=== PATIENT | male | born 1960 | race Caucasian/White ===

== ENCOUNTER 2018-09-07 15:56 | Outpatient (REF) | payer BC, SELFPAY ==
[2018-09-07 20:42] LABS: Anion Gap 9.4 mmol/L (3-11); BUN 19 mg/dL (7-18); CO2 27.6 mmol/L (21.0-32.0); CREATININE 1.07 mg/dL (0.70-1.30); Calcium 9.8 mg/dL (8.5-10.1); Chloride 107 mmol/L (98-107); Cholesterol 181 mg/dL (50-200); Glucose 102 mg/dL (70-100); HDL Cholesterol 70 mg/dL (40-60); LDL CHOLESTEROL 99 mg/dL (<100); Potassium 4.1 mmol/L (3.5-5.1); Sodium 144 mmol/L (136-145); TSH 0.91 uIU/mL (0.358-3.74); Triglyceride 46 mg/dL (30-150)
== END 2018-09-07 16:16 ==
LOC: NCHCN 15:56
PROVIDERS: PCP Internal Medicine; Visit Provider Internal Medicine
DX: Z00.00 Encounter for general adult medical examination without abnormal findings (principal); Z13.220 Encounter for screening for lipoid disorders; Z13.228 Encounter for screening for other metabolic disorders; Z13.29 Encounter for screening for other suspected endocrine disorder
CPT/HCPCS: 80048; 80061; 83721; 84443

== ENCOUNTER 2019-05-22 18:05 | Emergency (ER) | payer BC, SELFPAY ==
[2019-05-22 18:09] VITALS: BP 163/97; PULSE 63; RESP 16; TEMP 36.6; O2SAT 94
--- NOTE | 2019-05-22 19:42 | ED.GENADUL_ITS ---
Discharge Plan Disposition Patient Disposition: HOME Condition: Good Discharge Details Chief Complaint: EyeProblem Clinical Impression: Change in vision Primary Care Provider: Jett Newell ED Provider: Rosey Sepulveda Home Meds and New Rx's Prescriptions: No Action lisinopril 5 mg Tablet 5 mg PO DAILY RF: 0 Discharge Instructions Instructions: Retinal Detachment (GEN) Additional Instructions: Follow-up with Dr. Chavarria tomorrow at 8 AM at his office Avoid any trauma to your eye Return for any worsening, alarming or concerning symptoms sooner if needed Medical Decision Making Is a very pleasant 58-year-old man who does have a known history of retinal tears which were small followed by his chemical laboratory chief. Patient reports he is very aware of the signs and symptoms for which to observe as his chemical laboratory chief has precautioned him. Patient reports last night he noted flashes of light in the left eye which he attributed to use of a headlamp. Patient reports today persistence of flashes in the left eye in addition to floaters noted in the left eye. Patient also reports a curtain of darkness which crossed his vision then relieved intermittently. At this time patient reports his vision is crisp. Visual acuity 20/25 bilaterally. Concern for retinal detachment. Patient typically followed by [facility] Bedside ultrasound was equivocal. Performed with my attending Dr. Mitchell who at this time recommends calling [facility] for consultation. Spoke with of [facility] ophthalmology who reports that the patient has 72 hours before necessary repair for retinal detachment at this time given he has no central visual acuity changes is most appropriate to have this patient evaluated by his, optomistris locally/residential appraiser for definitive examination and diagnosis and if necessary can remain n.p.o. after Friday night and follow- up in [facility] for definitive repair. No specific precautions outside of avoid ance of trauma to the eye necessary prior to the ophthalmic evaluation I called patient's local chemical laboratory chief Dr. Rincon who will evaluate the patient at 8 AM tomorrow in his office. Discussed this with the patient who feels very comfortable with this plan of care. The patient was stable and requested discharge. Prior to discharge, my usual and customary return precautions were reviewed with the patient - this included follow-up instructions and reasons to return to the Emergency Department if conditions worsens, does not improve as expected, or other new concerns arise. HPI General Date/Time Provider Initiated Documentation: 05/22/19 18:07 . HPI Narrative: Is a pleasant 58-year-old man who presents for concern of vision change. Patient reports last night onset of flashes of light in the left eye while he was using a headlamp which he attributed the flashes of light to. Patient reports he woke this morning and had some persistence of flashes of light. Patient reports throughout the day onset of significant number of floaters to the left eye. Patient also reports a dark curtain which crosses his vision then resolves. Patient denies any blurred vision. Denies headache or dizziness. Patient denies any injury or trauma to his eye. Patient reports his vision is otherwise crisp. No drainage or discharge from the eye. No reported changes to the right eye. Related Data Home Medications Medication Instructions Recorded Confirmed lisinopril 5 mg PO DAILY 05/22/19 05/22/19 Allergies Allergy/AdvReac Type Severity Reaction Status Date / Time No Known Allergies Allergy Unverified 05/22/19 18:12 General Stated Complaint: EyeProblem NAT: 3 Review of Systems Review of Systems ROS Unobtainable: All systems reviewed & are unremarkable except as noted in HPI and below Constitutional Constitutional: Denies headache(s) Eyes Eyes: Denies eye discharge, Reports floaters, Denies loss of peripheral vision, Reports other visual disturbances, Denies eye pain, Reports seeing flashes and Denies photophobia ENT Ears, Nose, Mouth, and Throat: Denies vertigo, Denies dizziness, Denies otalgia, Denies facial pain and Denies headache(s) Neurologic Neurologic: Denies vertigo, Denies dizziness and Denies headache(s) [facility] Social History Smoking/Tobacco Use Status: Never Alcohol Intake: current Alcohol Intake frequency: 0-2 drinks per day Substance use type: does not use Do you feel safe at home: Yes Do you feel safe in your relationship?: Yes Exam Narrative Exam Narrative: CONST: Healthy appearing patient, in no acute distress. Well hydrated. Alert and alert. HENMT: Head nomocephalic, normal to inspection. Atraumatic. Hearing grossly normal. EYES: General normal appearance. Alignment normal. Eyelids normal. Conjunctiva normal. PERRLA. No peripheral field loss on exam NECK: Normal visual inspection. FROM. Trachea midline. No Midline tenderness. CHEST: Normal insepection of the chest. RESP: Normal respiratory effort. Speaking full sentences. No cough. No audible wheezing. No retractions. CARDIO: No JVD. MUSCULOSKELETAL: Normal Gait. FROM of all extremities. SKIN: Normal. Dry. No rashes. NEURO: Alert and awake. Speech clear. PSYCH: Normal affect. Cooperative. Eyes General: appearance normal, both eyes and all related structures Visual Otrres: normal visual torres by confrontation Alignment and Position: alignment normal Periorbital: periorbital findings normal Eyelids: eyelids normal Conjunctivae: conjunctivae normal Sclera: sclerae normal Pupils: PERRL EOM: EOM intact bilaterally Course Vital Signs Vital signs: Vital Signs Temperature 36.6 C 05/22/19 18:09 Pulse 63 05/22/19 18:09 Respiratory Rate 16 05/22/19 18:09 Blood Pressure 163/97 H 05/22/19 18:09 Pulse Oximetry 94 L 05/22/19 18:09 Temperature 36.6 C 05/22/19 18:09 Temperature Source Temporal Artery Scan 05/22/19 18:09 Pulse 63 05/22/19 18:09 Respiratory Rate 16 05/22/19 18:09 Respiratory Effort 05/22/19 18:16 Blood Pressure 163/97 H 05/22/19 18:09 Blood Pressure Position Sitting 05/22/19 18:09 Pulse Oximetry 94 L 05/22/19 18:09 Oxygen Delivery Method Room Air 05/22/19 18:09 Oxygen Flow Rate 0 05/22/19 18:09 Pain Level 0 05/22/19 18:09
== END 2019-05-22 19:45 | disposition home or self-care (01) ==
PROVIDERS: Emergency Provider Physician Assistant; PCP Internal Medicine
DX: H53.8 Other visual disturbances (principal); Z86.69 Personal history of other diseases of the nervous system and sense organs
CPT/HCPCS: 99282

== ENCOUNTER 2021-12-10 17:08 | Outpatient (REF) | payer BC, SELFPAY ==
[2021-12-10 21:18] LABS: Anion Gap 12.2 mmol/L (3-11); BUN 18 mg/dL (7-18); CO2 24.8 mmol/L (21.0-32.0); CREATININE 1.1 mg/dL (0.70-1.30); Calcium 9.1 mg/dL (8.5-10.1); Chloride 106 mmol/L (98-107); Glucose 99 mg/dL (74-106); Sodium 143 mmol/L (136-145)
== END 2021-12-10 17:09 | disposition home or self-care (01) ==
LOC: NCHCN 17:08
PROVIDERS: PCP Internal Medicine; Visit Provider Internal Medicine
DX: Z00.00 Encounter for general adult medical examination without abnormal findings (principal); I10 Essential (primary) hypertension
CPT/HCPCS: 80048

== ENCOUNTER 2022-12-12 16:37 | Outpatient (REF) | payer BC, SELFPAY ==
[2022-12-12 18:51] LABS: Anion Gap 10.8 mmol/L (3-11); BUN 18 mg/dL (7-18); CO2 27.2 mmol/L (21.0-32.0); CREATININE 1.1 mg/dL (0.70-1.30); Calcium 10.1 mg/dL (8.5-10.1); Chloride 105 mmol/L (98-107); Estimated GFR 74.96 (mL/min/1.73m2); Glucose 107 mg/dL (74-106); Potassium 4.1 mmol/L (3.5-5.1); Sodium 143 mmol/L (136-145)
[2022-12-13 18:59] LABS: PSA, Screening 1.5 ng/mL (<=4.5)
== END 2022-12-12 16:38 | disposition home or self-care (01) ==
LOC: NCHCN 16:37
PROVIDERS: PCP Internal Medicine; Visit Provider Internal Medicine
DX: Z00.00 Encounter for general adult medical examination without abnormal findings (principal); I10 Essential (primary) hypertension; R31.0 Gross hematuria; Z12.5 Encounter for screening for malignant neoplasm of prostate
CPT/HCPCS: 80048; 84153

== ENCOUNTER 2024-02-16 15:23 | Outpatient (REF) | payer MEDICARE, OTHER, SELFPAY ==
--- OUTSIDE RECORDS SUMMARY | 2024-02-16 15:30 | XMS_ITS | Encounter Summary ---
Author Organization [facility] Address [facility] [place] [address] Care Team Providers Care Environmental Coordinator Name Role Phone Roderick Arellano MD Primary Care Provider [phone] Reason for Visit * Reason Comments Blurred Vision Retina Tear OD * Consultation (Urgent) - Closed Specialty Diagnoses / Procedures Referred By Lashawn tolentino Referred To Contact Ophthalmology Diagnoses retinal rear od Iwona Pena, OD [address] [place] [address] Paulino Alonso MD [facility] [place] [address] Referral ID Status Reason Start Date Expiration Date V isits Requested Visits Authorized [id number] Closed Consult, Test & Treat 01/04/2020 01/03/2021 1 1 Encounter Details Date Type Department Care Team (Late st Contact Info) Description 01/06/2020 9:15 AM EDT Office Visit Ophthalmology at [facility] [place] [address] [address] MD [facility] [place] [address] Retinal tear, right; Horseshoe tear of retina, left; Vitreous hemorrhage of right eye Social History Tobacco Use Types Packs/Day Years Used Date Smoking Tobacco: Never Smokeless Tobacco: Never Alcohol Use Standard Drinks/Week Comments Yes 0 (1 standard drink = 0.6 oz pur e alcohol) socail Sex and Gender Information Value Date Recorded Sex Assigned at Not on file Gender Identity Not on file Sexual Orientation Not on file documented as of this encounter Patient Instructions * Patient Instructions* Paulino Alonso MD - 01/06/2020 9:15 AM EDT The doctor recommended laser retinopexy. What should I expect? Before the Laser The doctor will use topical anesthetics with drops and/or injections to numb up the eye. During the laser The laser takes 5-15 minutes. The patients frequently feel some discomfort that is generally well tolerated. If you feel that you cannot tolerate it please tell the doctor and the settings will be adjusted. If you still feel pain the treatment can be stopped. A small minority of the patients feel light-headed during the laser. If you feel so please let usknow and we will stop it. If you're diabetic please make sure you eat at your usual times prior to the laser. Immediately after the laser The vision is very blurry for a few minutes but goes back to baseline. Some patients feel foreign body sensation and mild pain for ~24 hours and in these cases over the counter artificial tears are recommended. Over over the counter pain medications (e.g. Tylenol or ibuprophen) might also help For several days after the laser The eye might look red and swollen. Use of artificial tears sometimes helps. Activity restrictions: A) If the laser was done for the treatment of a retinal tear/detachment please avoid any high impact activities such as long distance running, heavy weight lifting (i.e. More than 20lbs), contact sports (e.g. boxing, basketball etc) for 2 weeks. It's ok however to do most of your basic daily activities including sports with low impact (swimming, bike riding, walking on treadmill etc) B) These limitations do not apply to those who had Panretinal photocoagulation laser for diabeticretinopathy. These patients can continue their previous daily activities documented in this encounter Progress Notes * Paulino Alonso MD - 01/06/2020 9:15 AM EDT ASSESSMENT/PLAN: 1. Retinal tear, right 2. Horseshoe tear of retina, left 3. Vitreous hemorrhage of right eye Visual Acuity Visual Acuity (Snellen - Linear) Right Left Dist sc 20/30 20/20 Dist ph sc 20/20 Near cc 20/30 20/30 No known Fhx of RT or RD 1. Retinal tear with vitreous hemorrhage, right eye Dr. Pena, thank you for the kind referral. We agree with your diagnosis of horseshoe tear in the right eye. Discussed the risks/benefits/alternatives of observation and prophylactic laser photocoagulation and patient wishes to proceed with prophylactic laser The pertinent AAO video shown/ASRS fact sheet given Discussed the risk of surgery including need for additional surgery, cataract formation, retinal detachment. 2. Horseshoe tear, Left eye h/o floaters ~ 1 year ago. Will consider LR in the future 3. Posterior vitreous detachment, both eyes Discussed the high-risk period for RDs and RTs are the first 1-2 months after the onset of the PVD.RD precautions given. Also discussed the chances and symptoms of PVD in the fellow eye 4. Nuclear sclerosis, both eyes Not visually significant at this time. monitor Follow up 4-6wk for DFE OU Sooner PRN I, Brady [place], have performed the documentation for this encounter in the presence of, and acting as a scribe for Paulino Alonso MD. I performed the services which were documented by the scribe, and I agree with the accuracy of the documentation in this encounter. Paulino Alonso MD, PhD Extended Ophthalmoscopy Indication: 1. Retinal tear, right 2. Horseshoe tear of retina, left 3. Vitreous hemorrhage of right eye Technique: A) Indirect ophthalmoscopy with scleral depression B) Slit lamp exam with 90D/78D lens Findings: Main Ophthalmology Exam External Exam Right Left External Normal Normal Slit Lamp Exam Right Left Lids/Lashes Normal Normal Conjunctiva/Sclera pterygium nasally pterygium nasally Cornea Clear Clear Anterior Chamber Deep and quiet Deep and quiet Iris Round and reactive Round and reactive Lens trace NS trace NS Fundus Exam Right Left Vitreous 1+ VH, PVD PVD Disc Normal Normal C/D Ratio 0.3 0.3 Macula Normal hard drusen Vessels Normal Normal Periphery inf tear 6:30, pigmented lattice 4:30, HST 6:00, pigmented lattice at 10:30, 0,3 documented in this encounter Plan of Treatment Not on file documented as of this encounter Procedures Procedure Name Priority Date/Time Associated Diagnosis Comments OCT RETINA - OU - BOTH EYES Routine 01/06/2020 9:51 AM EDT Retinal tear, right documented in this encounter Results * OCT Retina - OU - Both Eyes (01/06/2020 9:51 AM EDT) Anatomical Region Laterality Modality Other Narrative 01/06/2020 9:51 AM EDT Right Eye Quality was borderline. Scan locations included subfoveal. Progression has no prior data. Findings include normal foveal contour. Left Eye Quality was good. Scan locations included subfoveal. Progression has no prior data. Findings include normal foveal contour. Notes [facility] OD Paulino Alonso MD OPHTHALMOLOGY SERVICES ORDERABLES documented in this encounter Visit Diagnoses Diagnosis Retinal tear, right Horseshoe tear of retina, left Vitreous hemorrhage of right eye Vitreous hemorrhage documented in this encounter Care Teams Environmental Coordinator Relationship Specialty Start Date End Date Roderick Arellano MD [address] [place] [address] PCP - General 06/26/10 documented as of this encounter
--- OUTSIDE RECORDS SUMMARY | 2024-02-16 15:30 | XMS_ITS | Encounter Summary ---
Author Organization [facility] Address [address] [place] [address] Care Team Providers Care Server Security Administrator Name Role Phone Brady Medrano MD Primary Care Provider [phone] Encounter Details Date Type Department Care Team (Late st Contact Info) Description 12/13/2022 Lab Requisition [facility] Pathology & Laboratory Medicine - [facility] [address], [place] [id number] Outr Resulting Lab, Provider Social History Tobacco Use Types Packs/Day Years Used Date Smoking Tobacco: Never Assessed Sex and Gender Information Value Date Recorded Sex Assigned at Not on file Gender Identity Not on file Sexual Orientation Not on file documented as of this encounter Plan of Treatment Not on file documented as of this encounter Procedures Procedure Name Priority Date/Time Associated Diagnosis Comments PSA TOTAL, DIAGNOSTIC Routine 12/12/2022 14:15 EDT documented in this encounter Results * PSA TOTAL, DIAGNOSTIC (12/12/2022 14:15 EDT) PSA 1.5 <=4.5 ng/mL 12/13/2022 18:55 EDT [facility] Blood VENOUS BLOOD / Unknown 12/12/2022 14:15 EDT 12/13/2022 18:01 EDT Narrative [facility] - 12/13/2022 18:55 EDT NOTE: Serum PSA concentration should not be interpreted as absolute evidence for the presence or absence of malignant disease. Assayed on Siemens ADVIA Centaur XPT using chemiluminescent technology.??Values obtained by using different assay methods cannot be used interchangeably. Provider Outr Resulting Lab CHEMISTRY & BLOOD GAS ORDERABLES [facility] [address] [place] [address] documented in this encounter Visit Diagnoses Not on filedocumented in this encounter Care Teams Server Security Administrator Relationship Specialty Start Date End Date Brady Medrano MD [address] [place] [address] PCP - General 06/15/15 documented as of this encounter
--- OUTSIDE RECORDS SUMMARY | 2024-02-16 15:30 | XMS_ITS | Encounter Summary ---
Author Organization [facility] [place] [address] Care Team Providers Care Lithographic Plate Maker Name Role Phone Roderick Arellano MD Primary Care Provider [phone] Reason for Visit * Reason Onset Date Comments Follow-up 01/07/2020 Encounter Details Date Type Department Care Team (Late st Contact Info) Description 01/07/2020 Telephone Ophthalmology at [facility] [place] [id number] Paulino Alonso MD [facility] [place] [address] Follow-up Social History Tobacco Use Types Packs/Day Years Used Date Smoking Tobacco: Never Smokeless Tobacco: Never Alcohol Use Standard Drinks/Week Comments Yes 0 (1 standard drink = 0.6 oz pur e alcohol) socail Sex and Gender Information Value Date Recorded Sex Assigned at Not on file Gender Identity Not on file Sexual Orientation Not on file documented as of this encounter Miscellaneous Notes * Telephone Encounter - Iliana Parkinson - 01/14/2020 9:52 AM EDT Pt scheduled * Telephone Encounter - Jailyn Anna - 01/07/2020 11:15 AM EDT I have called and left a message for patient to call and schedule an appointment. 0 Return in about 5 weeks (around 02/10/2020) for DFE, OU. documented in this encounter Plan of Treatment Not on file documented as of this encounter Visit Diagnoses Not on filedocumented in this encounter Care Teams Lithographic Plate Maker Relationship Specialty Start Date End Date Roderick Arellano MD [address] [place] [address] PCP - General 06/26/10 documented as of this encounter
--- OUTSIDE RECORDS SUMMARY | 2024-02-16 15:30 | XMS_ITS | Encounter Summary ---
Author Organization [facility] Address [address] [place] [address] Care Team Providers Care Framing Mill Operator Helper Name Role Phone Unavailable Primary Care Provider Unavailabl e Encounter Details Date Type Department Care Team (Late st Contact Info) Description 03/31/2002 Results Only [facility] conversion [address] [place] [address] Lynn Medrano MD [address] [place], [place] [id number] Social History Tobacco Use Types Packs/Day Years Used Date Smoking Tobacco: Never Assessed Sex and Gender Information Value Date Recorded Sex Assigned at Not on file Gender Identity Not on file Sexual Orientation Not on file documented as of this encounter Plan of Treatment Not on file documented as of this encounter Procedures Procedure Name Priority Date/Time Associated Diagnosis Comments CYTOPATHOLOGY Routine 03/31/2002 0:00 EDT documented in this encounter Results * CYTOPATHOLOGY (03/31/2002 0:00 EDT) Pathology Report: CYTOPATHOLOGY REPORT Reports generated via electronic interface contain original data; however they are lacking the format of the original report. Caution should be taken when reading/interpreti ng unformatted reports. Name: ? AYO PHAM ? Accession #: ? [id number] : ? 1960 (Age: 41) ??M ?Collect Date: ? 03/31/2002 Location: ? [facility] ? Receive Date: ? 04/01/2002 Provider: ? LYNN MEDRANO MD Copy to: ? CYTOLOGIC DIAGNOSIS: ? Urine, voided, cytologic evaluation: - Rare atypical cell present. ??See comment. ? COMMENT: ? A very rare, partially degenerated, but enlarged, atypical urothelial cell is present with mild nuclear irregularity. ??The paucity of the atypical cells precludes a more definitive diagnosis. ??Clinical correlation is suggested. ??(Dr. Jansen)/[facility] Document reviewed and electronically signed by: ? Ling Jansen MD Report Date: ??04/06/2002 16:50 By the signature above, the attending physician certifies that he/she has personally conducted a gross and/or microscopic examination of the described specimens and rendered or confirmed the above diagnosis. Specimen Type: ? Urine, Voided Clinical History: ? Not listed ? Gross Description: ? 80cc' s of yellow fluid (pooled x 2) were received and processed by concentration technique. ? End of Report MELISSA COELHO 03/31/2002 04/01/2002 8:4 3 EDT Lynn Medrano MD PATHOLOGY ORDERABLES MELISSA COELHO [address] [place] [address] documented in this encounter Visit Diagnoses Not on filedocumented in this encounter
--- OUTSIDE RECORDS SUMMARY | 2024-02-16 15:30 | XMS_ITS | Referral Summary ---
Author Organization [facility] Address [address] [place] [address] Care Team Providers Care Ferry Boat Captain Name Role Phone Brady Medrano MD Primary Care Provider [phone] Social History Tobacco Use Types Packs/Day Years Used Date Smoking Tobacco: Never Assessed Sex and Gender Information Value Date Recorded Sex Assigned at Not on file Gender Identity Not on file Sexual Orientation Not on file Plan of Treatment Not on file Care Teams Ferry Boat Captain Relationship Specialty Start Date End Date Brady Medrano MD [address] [place] [address] PCP - General 06/15/15
--- OUTSIDE RECORDS SUMMARY | 2024-02-16 15:30 | XMS_ITS | Encounter Summary ---
Author Organization [facility] [address] Care Team Providers Care Surface To Air Weapons Officer Name Role Phone Roderick Arellano MD Primary Care Provider [phone] Reason for Visit * Reason Comments Retinal Tear Encounter Details Date Type Department Care Team (Late st Contact Info) Description 10/25/2020 9:45 AM EDT Office Visit Ophthalmology at [facility] [place] [address] Paulino Alonso MD [facility] [place] [address] Horseshoe tear of retina, left; Retinal tear, right; Vitreous hemorrhage of right eye Social History [...] on file documented as of this encounter Progress Notes * Paulino Alonso MD - 10/25/2020 9:45 AM EDT ASSESSMENT/PLAN: 1. Horseshoe tear of retina, left 2. Retinal tear, right 3. Vitreous hemorrhage of right eye Visual Acuity Visual Acuity (Ayo Isolated) Right Left Dist sc 20/20 -1 20/20 -1 Near cc 20/20-1 20/20-2 +2.50 OTC 1. Retinal tear with vitreous hemorrhage, right eye -S/p laser 01/06/2020 Today 10/25/2020 -Retina is attached and the tears surrounded with mature LR 2. Horseshoe tear, Left eye S/p LR 02/09/2020 Today 10/25/2020 -Attached retina. Tears surrounded by mature LR 3. Posterior vitreous detachment, both eyes -the high-risk period for RDs and RTs are the first 1-2 months 4. Nuclear sclerosis, both eyes -not visually significant at this time. -monitor Follow up Retina PRN I, Anamika Irwin , have performed the documentation for this encounter in the presence of, and acting as a scribe for Paulino Alonso MD. I performed the services which were documented by the scribe, and I agree with the accuracy of the documentation in this encounter. Paulino Alonso MD, PhD Extended Ophthalmoscopy Indication: 1. Horseshoe tear of retina, left 2. Retinal tear, right 3. Vitreous hemorrhage of right eye Technique: [...] trace NS Fundus Exam Right Left Vitreous PVD PVD Disc Normal Normal C/D Ratio 0.3 0.3 Macula Normal Scar vs hard drusen Vessels Normal Normal Periphery s/p laser inferiorly HST sp LR 6:00, 450, pigmented lattice at 10:30 documented in this encounter Plan of Treatment Not on file documented as of this encounter Visit Diagnoses Diagnosis Horseshoe tear of retina, left Retinal tear, right Vitreous hemorrhage of right eye Vitreous hemorrhage documented in this encounter Care Teams Surface To Air Weapons Officer Relationship Specialty Start Date End Date Roderick Arellano MD [address] [place] [address] PCP - General 06/26/10 documented as of this encounter
--- OUTSIDE RECORDS SUMMARY | 2024-02-16 15:30 | XMS_ITS | Encounter Summary ---
Author Organization [facility] Address [facility] [place] [address] Care Team Providers Care Perinatal Technician Name Role Phone Roderick Arellano MD Primary Care Provider [phone] Encounter Details Date Type Department Care Team (Latest Contact Info) Description 02/09/2020 3:45 PM EDT Procedure visit Ophthalmology at [facility] [place] [address] Paulino Alonso MD [facility] [place] [address] Horseshoe tear of retina, left Social History Tobacco Use Types Packs/Day Years [...] this encounter Patient Instructions * Patient Instructions* Franca Rome - 02/09/2020 3:45 PM EDT The doctor recommended laser retinopexy. What [...] previous daily activities documented in this encounter Plan of Treatment Not on file documented as of this encounter Procedures Procedure Name Priority Date/Time Associated Diagnosis Comments PROPHYLAXIS RETINA DETACH, LASER - OS - LEFT EYE Routine 02/10/2020 4:53 PM EDT Horseshoe tear of retina, left documented in this encounter Results * Prophylaxis Retina Detach, Laser - OS - Left Eye (02/10/2020 4:53 PM EDT) Anatomical Region Laterality Modality Other Narrative 02/10/2020 4:53 PM EDT Pre-Op Patient understands the risks and benefits of the treatment as outlined on the consent. Anesthesia Subconjunctival anesthesia was used. Laser Information The type of laser was argon. Color was green. The duration in seconds was 100.0. The spot size was 200 microns. Laser power was 300.0. Total spots was 344. Post-op The patient tolerated the procedure well. There were no complications. The patient received written and verbal post procedure care education. Paulino Alonso MD OPHTHALMOLOGY SERVICES ORDERABLES documented in this encounter Visit Diagnoses Diagnosis Horseshoe tear of retina, left documented in this encounter Care Teams Perinatal Technician Relationship Specialty Start Date End Date Roderick Arellano MD [address] [place] [address] PCP - General 06/26/10 documented as of this encounter
--- OUTSIDE RECORDS SUMMARY | 2024-02-16 15:30 | XMS_ITS | Encounter Summary ---
Author Organization [facility] [place] [address] Care Team Providers Care Dusting And Brushing Machine Operator Name Role Phone Roderick Arellano MD Primary Care Provider [phone] Reason for Visit * Reason Onset Date Comments Follow-up 02/10/2020 Encounter Details Date Type Department Care Team (Late st Contact Info) Description 02/10/2020 Telephone Ophthalmology at [facility] [place] [id number] Paulino Alonso MD [facility] [place] [address] Follow-up Social History Tobacco Use Types Packs/Day [...] encounter Miscellaneous Notes * Telephone Encounter - Jailyn Anna - 02/21/2020 2:55 PM EDT Left 2nd message and letter was sent * Telephone Encounter - Jailyn Anna - 02/10/2020 11:07 AM EDT I have called and left a message for patient to call and schedule an appointment. Follow up 6mo for DFE OU documented in this encounter Plan of Treatment Not on file documented as of this encounter Visit Diagnoses Not on filedocumented in this encounter Care Teams Dusting And Brushing Machine Operator Relationship Specialty Start Date End Date Roderick Arellano MD [address] [place] [address] PCP - General 06/26/10 documented as of this encounter
--- OUTSIDE RECORDS SUMMARY | 2024-02-16 15:30 | XMS_ITS | Encounter Summary ---
Author Organization [facility] Address [facility] [place] [address] Care Team Providers Care Vertical Boring Mill Operator Name Role Phone Roderick Arellano MD Primary Care Provider [phone] Reason for Visit * Reason Comments Retinal Tear Encounter Details Date Type Department Care Team (Late st Contact Info) Description 02/09/2020 2:30 PM EDT Office Visit Ophthalmology at [facility] [place] [address] [address]ino Al[address] MD [facility] [place] [address] Retinal tear, right; Horseshoe tear of retina, [...] * Patient Instructions* Paulino Alonso MD - 02/09/2020 2:30 PM EDT The doctor recommended laser retinopexy. [...] Progress Notes * Paulino Alonso MD - 02/09/2020 2:30 PM EDT ASSESSMENT/PLAN: 1. Retinal tear, right 2. Horseshoe tear of retina, left 3. Vitreous hemorrhage of right eye Visual Acuity Visual Acuity (Snellen) Right Left Dist sc 20/20 -2 20/20 1. Retinal tear with vitreous hemorrhage, right eye -S/p laser 01/06/2020 Today 02/09/2020 -Retina is attached and the tears surrounded with LR 2. Horseshoe tear, Left eye -Agreed to do LR today 3. Posterior vitreous detachment, both eyes -Discussed the high-risk period for RDs and RTs are the first 1-2 months after the onset of the PVD. RD precautions given. Also discussed the chances and symptoms of PVD in the fellow eye 4. Nuclear sclerosis, both eyes -not visually significant at this time. -monitor Follow up 6mo for DFE OU Sooner PRKat Buckley, have performed the documentation for this encounter [...] drusen Vessels Normal Normal Periphery s/p laser HST 6:00, operculated hole at 450, pigmented lattice at 10:30, 0,3 documented in this encounter Plan of Treatment Not on file documented as of this encounter Visit Diagnoses Diagnosis Retinal tear, right Horseshoe tear of retina, left Vitreous hemorrhage of right eye Vitreous hemorrhage documented in this encounter Care Teams Vertical Boring Mill Operator Relationship Specialty Start Date End Date Roderick Arellano MD [address] [place] [address] PCP - General 06/26/10 documented as of this encounter
--- OUTSIDE RECORDS SUMMARY | 2024-02-16 15:30 | XMS_ITS | Clinical Summary ---
Author Organization [facility] Address [address] [place] [address] Care Team Providers Care Plow Mechanic Name Role Phone Brady Medrano MD Primary Care Provider Social History Tobacco Use Types Packs/Day Years Used Date Smoking Tobacco: Never Assessed Sex and Gender Information Value Date Recorded Sex Assigned at Not on file Gender Identity Not on file Sexual Orientation Not on file Plan of Treatment Health Maintenance Due Date Last Done Comments Hepatitis C Screen 1960 RSV Immunization ( o r 60+ Years) (1 - 1-dose 60+ series) 2018 COVID-19 Vaccine (2022-24 season) 2023 Fall Risk Screening 2023 Care Teams Plow Mechanic Relationship Specialty Start Date End Date Brady Medrano MD [address] [place] [address] PCP - General 06/15/15
--- OUTSIDE RECORDS SUMMARY | 2024-02-16 15:30 | XMS_ITS | Encounter Summary ---
Author Organization [facility] Address [address] [place] [address] Care Team Providers Care Nail Kegger Name Role Phone Brady Medrano MD Primary Care Provider Encounter Details Date Type Department Care Team (Late st Contact Info) Description 01/10/2020 Lab Requisition [facility] Pathology & Laboratory Medicine - [facility] [address] [place] [address] Outr Resulting Lab, Provider Social History Tobacco [...] Procedure Name Priority Date/Time Associated Diagnosis Comments DO NOT ORDER STANDALONE - BROAD COVID TEST Today 01/10/2020 15:16 EDT COVID-19 TESTING Routine 01/10/2020 15:1 6 EDT documented in this encounter Results * DO NOT ORDER STANDALONE - BROAD COVID TEST (01/10/2020 15:16 EDT) COVID-19 rt-PCR Result NEGATIVE Negative 01/12/2020 12:45 EDT [facility] Comment: 2019-novel Coronavirus (2019-nCoV) not detected by the qRT-PCR assay. Consider testing for other respiratory viruses or re-collecting for 2019-nCoV testing. Note: Optimum timing for peak viral levels during infections caused by 2019-nCoV have not been determined. Collection of multiple specimens from the same patient may be necessary to detect the virus. Limitations Positive results are indicative of active infection with SARS-CoV-2 but do not rule out bacterial infection or co-infection with other viruses. The agent detected may not be the definite cause of disease. In addition, detection of viral RNA may not indicate the presence of infectious virus or that SARS-CoV-2 is the causative agent for clinical symptoms. Negative results do not preclude SARS-CoV-2 infection and should not be used as the sole basis for patient management decisions. Negative results must be combined with clinical observations, patient history, and epidemiological information. False negative results may also occur if amplification inhibitors are present in the specimen or if inadequate numbers of organisms are present in the specimen. Optimum specimen types and timing for peak viral levels during infections caused by SARS-CoV-2 have not been fully determined. Collection of multiple specimens (types and time points) from the same patient may be necessary to detect the virus. The test was validated for use with upper respiratory specimens obtained via nasopharyngeal or oropharyngeal swabs in VTM, UTM, M4, M5, M6, saline, and MTM media. The performance of this test has not been established for other specimens. Specimens collected using other FDA recommended Specimen Collection Materials listed in the FDA COVID-19 Diagnostic [employer] communication (October 28, 2019) are processed with the caveat that they were not all validated for use with this test and the result must be interpreted in this context. Furthermore, a false negative results may occur if a specimen is improperly collected, transported or handled. If the virus mutates in the RT-PCR target region, SARS-CoV-2 may not be detected or may be detected less predictably. Inhibitors or other types of interference may produce a false negative result. An interference study evaluating the effect of common cold medications was not performed. This test is not FDA-cleared but its performance characteristics were established by our CLIA-certified, CAP-accredited, high complexity laboratory in accordance with CLIA regulations, [employer] [place] [employer] (CAP) guidelines (Oct 21, 2019), and FDA guidance (Oct 02, 2019). This test is only for use under the Food and Drug Administration's Emergency Use Authorization. Swab ENTIRE NASOPHARYNX / Unknown 01/10/2020 15:16 EDT 01/10/2020 21:45 EDT Provider Outr Resulting Lab MICROBIOLOGY - GENERAL ORDERABLES [place], [place] * COVID-19 TESTING (01/10/2020 15:16 EDT) COVID-19 rt-PCR Result NEGATIVE Negative 01/12/2020 14:48 EDT [facility] Comment: 2019-novel Coronavirus (2019-nCoV) not detected by the qRT-PCR assay. Consider testing for other respiratory viruses or re-collecting for 2019-nCoV testing. Note: Optimum timing for peak viral levels during infections caused by 2019-nCoV have not been determined. Collection of multiple specimens from the same patient may be necessary to detect the virus. Limitations Positive results are indicative of active infection with SARS-CoV-2 but do not rule out bacterial infection or co-infection with other viruses. The agent detected may not be the definite cause of disease. In addition, detection of viral RNA may not indicate the presence of infectious virus or that SARS-CoV-2 is the causative agent for clinical symptoms. Negative results do not preclude SARS-CoV-2 infection and should not be used as the sole basis for patient management decisions. Negative results must be combined with clinical observations, patient history, and epidemiological information. False negative results may also occur if amplification inhibitors are present in the specimen or if inadequate numbers of organisms are present in the specimen. Optimum specimen types and timing for peak viral levels during infections caused by SARS-CoV-2 have not been fully determined. Collection of multiple specimens (types and time points) from the same patient may be necessary to detect the virus. The test was validated for use with upper respiratory specimens obtained via nasopharyngeal or oropharyngeal swabs in VTM, UTM, M4, M5, M6, saline, and MTM media. The performance of this test has not been established for other specimens. Specimens collected using other FDA recommended Specimen Collection Materials listed in the FDA COVID-19 [employer] communication (October 28, 2019) are processed with the caveat that they were not all validated for use with this test and the result must be interpreted in this context. Furthermore, a false negative results may occur if a specimen is improperly collected, transported or handled. If the virus mutates in the RT-PCR target region, SARS-CoV-2 may not be detected or may be detected less predictably. Inhibitors or other types of interference may produce a false negative result. An interference study evaluating the effect of common cold medications was not performed. This test is not FDA-cleared but its performance characteristics were established by our CLIA-certified, CAP-accredited, high complexity laboratory in accordance with CLIA regulations, [employer] [place] [employer] (CAP) guidelines (Oct 21, 2019), and FDA guidance (Oct 02, 2019). This test is only for use under the Food and Drug Administration's Emergency Use Authorization. Performing Lab [facility] [place] 01/12/2020 14:48 EDT [facility] Swab ENTIRE NASOPHARYNX / Unknown 01/10/2020 15:16 EDT 01/10/2020 21:45 EDT Provider Outr Resulting Lab MICROBIOLOGY - GENERAL ORDERABLES [facility] [address] [place] [address] [facility] [place] documented in this encounter Visit Diagnoses Not on filedocumented in this encounter Care Teams Nail Kegger Relationship Specialty Start Date End Date Brady Medrano MD [address] [place] [address] PCP - General 06/15/15 documented as of this encounter
--- OUTSIDE RECORDS SUMMARY | 2024-02-16 15:30 | XMS_ITS | Encounter Summary ---
Author Organization [facility] Address [facility] [place] [address] Care Team Providers Care Catalyst Operator Chief Name Role Phone Roderick Arellano MD Primary Care Provider [phone] Reason for Visit * Reason Onset Date Comments Eye Problem 05/23/2019 Follow up call t o Dr. Chavarria's office Encounter Details Date Type Department Care Team (Late st Contact Info) Description 05/23/2019 Telephone [place] [id number] Marco Carver MD [facility] [address] OPHTHALMOLOGY [place] [address] Eye Problem (Follow up call to Dr. Chavarria's office) Social History Tobacco Use Types Packs/Day Years Used Date Smoking Tobacco: Never Assessed Sex and Gender Information Value Date Recorded Sex Assigned at Not on file Gender Identity Not on file Sexual Orientation Not on file documented as of this encounter Miscellaneous Notes * Telephone Encounter - Fidelia Ayala COT - 05/24/2019 8:45 AM EDT MEZ received ED call from [facility] for patient with flashes and floaters. Confirmed, patient was see by Dr. Chavarria yesterday with PVD. Will be following up in that clinic on 06/07/19 for DFE vs sooner if worsening symptoms. * Telephone Encounter - Marco Carver MD - 05/23/2019 4:43 PM EDT Called patient at number listed in EDH to find out if they were planning on coming into clinic tomorrow, Number is listed as disconnected. documented in this encounter Plan of Treatment Not on file documented as of this encounter Visit Diagnoses Not on filedocumented in this encounter Care Teams Catalyst Operator Chief Relationship Specialty Start Date End Date Roderick Arellano MD [address] [place] [address] PCP - General 06/26/10 documented as of this encounter
--- OUTSIDE RECORDS SUMMARY | 2024-02-16 15:30 | XMS_ITS | Encounter Summary ---
Author Organization [facility] [place] [address] Care Team Providers Care Conservation Officer Name Role Phone Roderick Arellano MD Primary Care Provider [phone] Encounter Details Date Type Department Care Team (Latest Contact Info) Description 01/06/2020 11:30 AM EDT Procedure visit Ophthalmology at [facility] [place] [address] Paulino Alonso MD [facility] [place] [id number] Retinal tear, right Social History Tobacco Use Types Packs/Day Years [...] Procedure Name Priority Date/Time Associated Diagnosis Comments REPAIR RETINAL DETACHMENT PHOTOCAOGULATION - OD - RIGHT EYE Routine 01/06/2020 1:04 PM EDT Retinal tear, right documented in this encounter Results * Repair Retinal Detachment Photocaogulation - OD - Right Eye (01/06/2020 1:04 PM EDT) Anatomical Region Laterality Modality Other Narrative 01/06/2020 1:04 PM EDT Pre-Op Patient understands the risks and benefits of the treatment as outlined on the consent. Anesthesia Topical anesthesia was used. Laser Information The type of laser was argon. Color was green. The duration in seconds was 60.0. Laser power was 200.0. Total spots was 111. Post-op The patient tolerated the procedure well. There were no complications. The patient received written and verbal post procedure care education. Paulino Alonso MD OPHTHALMOLOGY SERVICES ORDERABLES documented in this encounter Visit Diagnoses Diagnosis Retinal tear, right documented in this encounter Care Teams Conservation Officer Relationship Specialty Start Date End Date Roderick Arellano MD [address] [place] [address] PCP - General 06/26/10 documented as of this encounter
--- OUTSIDE RECORDS SUMMARY | 2024-02-16 15:30 | XMS_ITS | Clinical Summary ---
Author Organization [facility] [place] [address] Care Team Providers Care Dip Brazier Name Role Phone Roderick Arellano MD Primary Care Provider [phone] Allergies No known active allergies Medications No known medications Active Problems No known active problems Family History Medical History Relation Comments Cancer Father Hypertension Mother Relation Status Comments Father Mother Social History Tobacco Use Types Packs/Day Years [...] Health Maintenance Due Date Last Done Comments CT Colonography 1960 Colonoscopy 1960 Colorectal Cancer Screening 1960 FIT DNA 1958 FIT 1960 Sigmoidoscopy (10 year) with FIT yearly 1958 Sigmoidoscopy 1960 HIV screen 1976 Hepatitis C Screening 1976 Lipid Screening 1976 Tdap adult 1977 Tetanus vaccine 1977 Zoster vaccine (1 of 2) 2008 Advance Directive 2013 Covid-19 Vaccine (2022-24 season) 2023 Pneumoccocal Vaccine: 65+ (1 of 1 - PCV) 2023 Influenza (Flu) vaccine (1 o f 1 - Influenza standard series) 04/04/2024 Care Teams Dip Brazier Relationship Specialty Start Date End Date Roderick Arellano MD [address] [place], [place] [id number] PCP - General 06/26/10
[2024-02-16 20:10] LABS: Anion Gap 8.8 mmol/L (3-11); BUN 18 mg/dL (7-18); CO2 29.2 mmol/L (21.0-32.0); CREATININE 1.1 mg/dL (0.70-1.30); Calcium 9.8 mg/dL (8.5-10.1); Chloride 106 mmol/L (98-107); Glucose 106 mg/dL (74-106); Sodium 144 mmol/L (136-145)
[2024-02-17 19:38] LABS: PSA, Screening 1.6 ng/mL (<=4.5)
== END 2024-02-16 15:24 | disposition home or self-care (01) ==
LOC: NCHCN 15:23
PROVIDERS: PCP Internal Medicine; Visit Provider Internal Medicine
DX: I10 Essential (primary) hypertension (principal); Z12.5 Encounter for screening for malignant neoplasm of prostate
CPT/HCPCS: 80048; 84153

== ENCOUNTER 2025-02-21 15:41 | Outpatient (REF) | payer MEDICARE, OTHER, SELFPAY ==
[2025-02-21 19:53] LABS: Anion Gap 8.0 mmol/L (3-11); BUN 20 mg/dL (7-18); CO2 28.0 mmol/L (21.0-32.0); Calcium 9.7 mg/dL (8.5-10.1); Calculated LDL 92 mg/dL (<100); Chloride 104 mmol/L (98-107); Cholesterol 167 mg/dL (<200); Estimated GFR 97.61 (mL/min/1.73m2); Glucose 112 mg/dL (74-106); HDL Cholesterol 66 mg/dL (>or=40); Potassium 4.1 mmol/L (3.5-5.1); Sodium 140 mmol/L (136-145); Triglyceride 47 mg/dL (<150)
[2025-02-22 18:25] LABS: PSA, Screening 1.6 ng/mL (<=4.5)
[2025-02-22 19:03] LABS: HIV-1/2 Ag & Ab Screen Negative (Negative)
[2025-02-23 13:21] LABS: Hepatitis C Ab w Rflx HCV PCR Negative (Negative)
== END 2025-02-21 15:42 | disposition home or self-care (01) ==
LOC: NCHCN 15:41
PROVIDERS: PCP Internal Medicine; Visit Provider Internal Medicine
DX: I10 Essential (primary) hypertension (principal); Z12.5 Encounter for screening for malignant neoplasm of prostate; Z11.4 Encounter for screening for human immunodeficiency virus [HIV]
CPT/HCPCS: 80048; 80061; 84153; 86803; 87389